=== PATIENT | male | born 1960 | race Caucasian/White ===

== ENCOUNTER 2019-07-12 10:57 | Emergency (ER) | payer OTHER ==
[~2019-07-12] VITALS: Ht 188 cm; Wt 93.0 kg
--- NOTE | 2019-07-12 10:58 | NUR ---
PT BIBA BLS TO ER BED 02
[2019-07-12 11:04] VITALS: BP 170/109
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
--- NOTE | 2019-07-12 11:15 | NUR ---
[place] [facility] AT BEDSIDE TALKING TO PATIENT
--- NOTE | 2019-07-12 11:25 | NUR ---
Patient being evaluated by DR. GREEN at bedside.
--- NOTE | 2019-07-12 12:15 | NUR ---
IV removed, catheter intact and site benign. Applied folded 4x4 gauze and tape to stop bleeding.
--- NOTE | 2019-07-12 12:17 | NUR ---
Patient discharged with v/s stable. Written and verbal after care instructions given and explained by Dr. Velásquez. Patient verbalized understanding. Ambulatory with steady gait. All questions addressed prior to discharge. Advised to follow up with PMD.
[2019-07-12 12:43] VITALS: BP 168/94
== END 2019-07-12 12:17 | disposition home or self-care (01) ==
LOC: MED 10:57
DX: Z02.89 Encounter for other administrative examinations (principal); V89.2XXA Person injured in unspecified motor-vehicle accident, traffic, initial encounter; Y93.89 Activity, other specified; Y92.89 Other specified places as the place of occurrence of the external cause; Y99.8 Other external cause status
CPT/HCPCS: 99283

== ENCOUNTER 2020-01-01 00:10 | Inpatient (IN) | payer MEDICAID ==
[2020-01-01] VITALS (8 sets, daily range): BP systolic 113–182; BP diastolic 68–110
[~2020-01-01] VITALS: Ht 182.9 cm; Wt 93.9 kg
[2020-01-01] MEDS ORDERED: ENALAPRILAT 2.5 MG/2 ML VIAL IVP ONE (00:25)
[2020-01-01] MEDS ORDERED: FUROSEMIDE 20 MG/2 ML VIAL IVP ONE (00:25)
[2020-01-01 01:00] LABS: BASOPHILS # (AUTO) 0.1 K/uL (0.00-0.22); BASOPHILS % (AUTO) 1.5 % (0.0-2.0); EOSINOPHILS % (AUTO) 0.3 % (0.0-4.0); HEMATOCRIT 43.5 % (36-52); HEMOGLOBIN 13.8 g/dL (12.0-18.0); LYMPHOCYTES # (AUTO) 0.3 K/uL (2.0-11.5); MEAN CORPUSCULAR HEMOGLOBIN 25 pg (27-31); MEAN CORPUSCULAR HGB CONC 32 g/dL (33-37); MEAN CORPUSCULAR VOLUME 78.5 fL (80-94); MONOCYTES # (AUTO) 0.5 K/uL (0.8-1.0); MONOCYTES % (AUTO) 6.9 % (1.7-9.3); NEUTROPHILS # (AUTO) 6.4 K/uL (1.8-7.7); NEUTROPHILS % (AUTO) 87.4 % (42.2-75.2); PLATELET COUNT (AUTO) 179 K/uL (140-450); RED BLOOD CELL COUNT(AUTO) 5.55 MIL/uL (4.20-6.10); WHITE BLOOD COUNT (AUTO) 7.4 K/uL (4.8-10.8)
[2020-01-01 01:17] LABS: ALBUMIN 2.4 g/dL (3.4-5.0); ANION GAP 17.8 (8-16); CARBON DIOXIDE 21.6 mmol/L (21-32); CREATININE 1.1 mg/dL (0.6-1.3); POTASSIUM 3.4 mmol/L (3.5-5.1); TOTAL BILIRUBIN 1.5 mg/dL (0.0-1.0)
[2020-01-01 01:20] LABS: LYMPHOCYTES % (AUTO) 3.9 % (20.5-51.1)
[2020-01-01] MEDS ORDERED: FUROSEMIDE 20 MG/2 ML VIAL IVP SCH (02:05)
[2020-01-01] MEDS ORDERED: HYDROcodone/APAP 7.5/325 MG 1 TAB PO PRN (02:05)
[2020-01-01] MEDS ORDERED: ONDANSETRON 4 MG/2 ML VIAL IVP PRN (02:05)
[2020-01-01 02:34] LABS: APPEARANCE,URINE CLEAR (CLEAR); BILIRUBIN,URINE NEGATIVE (NEGATIVE); BLOOD, URINE NEGATIVE (NEGATIVE); COLOR,URINE YELLOW (YELLOW); LEUKOCYTE ESTERASE ,URINE NEGATIVE (NEGATIVE); NITRITE, URINE NEGATIVE (NEGATIVE); UGLUCOSE NEGATIVE (NEGATIVE)
[2020-01-01] MEDS ORDERED: POTASSIUM CHLORIDE 10 MEQ TABER PO SCH (02:35)
[2020-01-01 02:50] LABS: PROTHROMBIN TIME 13.9 secs (10.8-13.4)
[2020-01-01] MEDS: NACL 0.9% 1,000 ML IV SCH ×2 (03:20→22:01)
[2020-01-01 03:28] LABS: BARBITURATE, URINE NEGATIVE ng/ml (NEG <=200); BENZODIAZEPINE, URINE NEGATIVE ng/mL (NEG <=200); CANNABINOID, URINE NEGATIVE ng/mL (NEG <=50); COCAINE, URINE NEGATIVE ng/mL (NEG <=300); OPIATE, URINE NEGATIVE ng/mL (NEG <=2000); PHENCYCLIDINE SCREEN,URINE NEGATIVE ng/mL (NEG <=25)
[2020-01-01 03:39] LABS: MAGNESIUM 1.4 mg/dL (1.8-2.4); PHOSPHORUS 3.1 mg/dL (2.5-4.9); THYROID STIMULATING HORMONE 7.9 uIU/mL (0.34-3.74)
[2020-01-01] MEDS: AMPICILLIN/SULBACTAM 3 GM in NACL 0.9% 100 ML IV SCH ×3 (05:23→22:06)
[2020-01-01] MEDS ORDERED: AMPICILLIN/SULBACTAM 3 GM VIAL ONE (05:24)
[2020-01-01 06:44] LABS: BASOPHILS # (AUTO) 0.1 K/uL (0.00-0.22); EOSINOPHILS % (AUTO) 0.3 % (0.0-4.0); HEMATOCRIT 43.8 % (36-52); HEMOGLOBIN 13.9 g/dL (12.0-18.0); LYMPHOCYTES # (AUTO) 0.4 K/uL (2.0-11.5); MEAN CORPUSCULAR HEMOGLOBIN 25 pg (27-31); MEAN CORPUSCULAR HGB CONC 32 g/dL (33-37); MONOCYTES # (AUTO) 0.7 K/uL (0.8-1.0); MONOCYTES % (AUTO) 7.8 % (1.7-9.3); NEUTROPHILS # (AUTO) 7.7 K/uL (1.8-7.7); NEUTROPHILS % (AUTO) 85.9 % (42.2-75.2); PLATELET COUNT (AUTO) 179 K/uL (140-450); RED BLOOD CELL COUNT(AUTO) 5.61 MIL/uL (4.20-6.10); RED CELL DISTRIBUTION WIDTH 21.9 % (11.6-13.7)
[2020-01-01 07:12] LABS: ANION GAP 18.4 (8-16); CARBON DIOXIDE 22.9 mmol/L (21-32); CREATININE 1.1 mg/dL (0.6-1.3); POTASSIUM 3.3 mmol/L (3.5-5.1)
[2020-01-01 07:32] LABS: MAGNESIUM 1.5 mg/dL (1.8-2.4); PHOSPHORUS 3.5 mg/dL (2.5-4.9)
[2020-01-01] MEDS ORDERED: LISINOPRIL 20 MG TAB PO SCH (09:00)
[2020-01-01 09:24] LABS: CHOL/HDL RATIO 6.2 (1-4.5)
[2020-01-01] MEDS: FUROSEMIDE 40 MG/4 ML VIAL IVP SCH ×2 (09:29→22:06)
[2020-01-01] MEDS: MAGNESIUM OXIDE 400 MG TAB PO PRN (09:30)
[2020-01-01] MEDS: FAMOTIDINE 20 MG TAB PO SCH (09:30)
[2020-01-01] MEDS: POTASSIUM CHLORIDE 10 MEQ TABER PO PRN (09:30)
[2020-01-01] MEDS: DOCUSATE SODIUM 100 MG GELCAP PO SCH ×2 (09:31→21:21)
[2020-01-01] MEDS ORDERED: ASPIRIN 325 MG TAB PO PRN (14:10)
[2020-01-01] MEDS: ACETAMINOPHEN 325 MG TAB PO PRN (14:33)
[2020-01-01] MEDS ORDERED: POTASSIUM CHLORIDE 40 MEQ, LIDOCAINE 1% 25 MG in NACL 0.9% 250 ML IV SCH (17:00)
[2020-01-01] MEDS ORDERED: HYDRAGUARD CREAM TP PRN (17:30)
[2020-01-01] MEDS: HYDRAGUARD CREAM TP SCH (17:51)
[2020-01-02] VITALS: BP 134/86
[2020-01-02 04:00] VITALS: BP_SYST 134; BP_SYST 137; BP_DIAS 76
[2020-01-02] MEDS: AMPICILLIN/SULBACTAM 3 GM in NACL 0.9% 100 ML IV SCH ×3 (05:42→22:06)
[2020-01-02 06:29] LABS: BASOPHILS # (AUTO) 0.1 K/uL (0.00-0.22); BASOPHILS % (AUTO) 0.6 % (0.0-2.0); EOSINOPHILS % (AUTO) 0.3 % (0.0-4.0); HEMATOCRIT 41.1 % (36-52); HEMOGLOBIN 13.1 g/dL (12.0-18.0); LYMPHOCYTES # (AUTO) 0.5 K/uL (2.0-11.5); LYMPHOCYTES % (AUTO) 4.4 % (20.5-51.1); MEAN CORPUSCULAR HEMOGLOBIN 25 pg (27-31); MEAN CORPUSCULAR HGB CONC 32 g/dL (33-37); MEAN CORPUSCULAR VOLUME 78.6 fL (80-94); MONOCYTES # (AUTO) 0.7 K/uL (0.8-1.0); MONOCYTES % (AUTO) 6.2 % (1.7-9.3); NEUTROPHILS # (AUTO) 9.4 K/uL (1.8-7.7); NEUTROPHILS % (AUTO) 88.5 % (42.2-75.2); PLATELET COUNT (AUTO) 169 K/uL (140-450); RED BLOOD CELL COUNT(AUTO) 5.23 MIL/uL (4.20-6.10); RED CELL DISTRIBUTION WIDTH 20.9 % (11.6-13.7); WHITE BLOOD COUNT (AUTO) 10.7 K/uL (4.8-10.8)
[2020-01-02 07:14] LABS: MAGNESIUM 1.3 mg/dL (1.8-2.4); PHOSPHORUS 3.1 mg/dL (2.5-4.9)
[2020-01-02 07:30] LABS: ANION GAP 13.7 (8-16); CARBON DIOXIDE 26.5 mmol/L (21-32); POTASSIUM 3.2 mmol/L (3.5-5.1)
[2020-01-02 08:00] VITALS: BP 139/83
[2020-01-02] MEDS: POTASSIUM CHLORIDE 10 MEQ TABER PO PRN (08:14)
[2020-01-02] MEDS: FUROSEMIDE 40 MG/4 ML VIAL IVP SCH ×2 (09:22→20:36)
[2020-01-02] MEDS: ZINC SULF 220 MG CAP PO SCH (09:24)
[2020-01-02] MEDS: LISINOPRIL 20 MG TAB PO SCH (09:25)
[2020-01-02] MEDS: DOCUSATE SODIUM 100 MG GELCAP PO SCH ×2 (09:26→20:36)
[2020-01-02] MEDS: FAMOTIDINE 20 MG TAB PO SCH (09:26)
[2020-01-02] MEDS: ASCORBIC ACID 500 MG TAB PO SCH (09:37)
[2020-01-02] MEDS ORDERED: MAG SULF 2000 MG/WATER PREMIX 100 ML IV SCH (10:00)
[2020-01-02] MEDS ORDERED: MAGNESIUM OXIDE 400 MG TAB PO SCH (10:00)
[2020-01-02 12:00] VITALS: BP 110/71
[2020-01-02] MEDS ORDERED: POTASSIUM CHLORIDE 40 MEQ, LIDOCAINE MPF 1% 25 MG in NACL 0.9% 250 ML IV SCH (14:00)
[2020-01-02 16:00] VITALS: BP 119/75
[2020-01-02] MEDS: HYDRAGUARD CREAM TP SCH (18:20)
[2020-01-02 20:00] VITALS: BP 112/74
[2020-01-02 20:35] LABS: RBC, BODY FLUID 2720 /cu. mm.; WBC, BODY FLUID 6 /cu. mm.
[2020-01-02 21:35] LABS: APPEARANCE,SPUN,BODY FLUID CLEAR (CLEAR); APPEARANCE,UNSPUN,BODY FLUID CLEAR (CLEAR); COLOR,BODY FLUID LT YELLOW (LT YELLOW); SPECIMENTYPE,BODY FLUID THORACENTESIS; TOTAL VOLUME,BODY FLUID 1500 mL
[2020-01-03] VITALS (7 sets, daily range): BP systolic 109–130; BP diastolic 57–82
[2020-01-03] MEDS: NACL 0.9% 1,000 ML IV SCH (02:04)
[2020-01-03] MEDS: AMPICILLIN/SULBACTAM 3 GM in NACL 0.9% 100 ML IV SCH ×2 (05:20→13:54)
[2020-01-03 07:14] LABS: HEMOGLOBIN 13.4 g/dL (12.0-18.0)
[2020-01-03 07:18] LABS: MEAN CORPUSCULAR HEMOGLOBIN 25 pg (27-31); MEAN CORPUSCULAR HGB CONC 31 g/dL (33-37); MEAN CORPUSCULAR VOLUME 79.7 fL (80-94); PLATELET COUNT (AUTO) 143 K/uL (140-450); RED BLOOD CELL COUNT(AUTO) 5.39 MIL/uL (4.20-6.10); RED CELL DISTRIBUTION WIDTH 21.8 % (11.6-13.7); WHITE BLOOD COUNT (AUTO) 9.9 K/uL (4.8-10.8)
[2020-01-03 07:31] LABS: ANION GAP 11.6 (8-16); POTASSIUM 3.6 mmol/L (3.5-5.1)
[2020-01-03 07:36] LABS: MAGNESIUM 1.6 mg/dL (1.8-2.4); PHOSPHORUS 3.1 mg/dL (2.5-4.9)
[2020-01-03 08:35] LABS: LYMPHOCYTES % (MANUAL) 5 % (20-46)
[2020-01-03 08:36] LABS: EOSINOPHILS % (MANUAL) 1 % (0-4); MONOCYTES % (MANUAL) 7 % (5-12)
[2020-01-03] MEDS: DOCUSATE SODIUM 100 MG GELCAP PO SCH ×2 (09:05→20:55)
[2020-01-03] MEDS: ZINC SULF 220 MG CAP PO SCH (09:06)
[2020-01-03] MEDS: FAMOTIDINE 20 MG TAB PO SCH (09:06)
[2020-01-03] MEDS: LISINOPRIL 20 MG TAB PO SCH (09:06)
[2020-01-03] MEDS: ASCORBIC ACID 500 MG TAB PO SCH (09:06)
[2020-01-03] MEDS: FUROSEMIDE 40 MG/4 ML VIAL IVP SCH ×2 (09:15→20:55)
[2020-01-03] MEDS: MAGNESIUM OXIDE 400 MG TAB PO PRN (12:00)
[2020-01-03] MEDS ORDERED: LIDOCAINE MPF 1% 5 ML ONE (13:15)
[2020-01-03] MEDS: HYDRAGUARD CREAM TP SCH (13:52)
[2020-01-03] MEDS ORDERED: VANCOMYCIN PER PHARMACY MC PRN (17:25)
[2020-01-03] MEDS ORDERED: VANCOMYCIN 2,000 MG in DEXTROSE 5% 500 ML IV ONE (18:05)
[2020-01-03] MEDS ORDERED: VANCOMYCIN 1,000 MG VIAL ONE (18:13)
[2020-01-03 21:35] LABS: GLUCOSE,BODY FLUID 107 mg/dL
[2020-01-03 21:37] LABS: SPECIMENTYPE,BODY FLUID THORACENTESIS; TOTAL VOLUME,BODY FLUID 1450 mL
[2020-01-03 22:26] LABS: APPEARANCE,SPUN,BODY FLUID CLEAR (CLEAR); APPEARANCE,UNSPUN,BODY FLUID CLEAR (CLEAR); COLOR,BODY FLUID LT YELLOW (LT YELLOW); RBC, BODY FLUID 8360 /cu. mm.; WBC, BODY FLUID 682 /cu. mm.
[2020-01-03 22:27] LABS: POLYNUCLEAR, BODY FLUID 28 %
[2020-01-03] MEDS: CARVEDILOL 6.25 MG TAB PO SCH (23:50)
[2020-01-04] MEDS: NACL 0.9% 1,000 ML IV SCH ×2 (02:04→05:18)
[2020-01-04] MEDS ORDERED: HYDRAGUARD CREAM TP ONE (02:30)
[2020-01-04 04:00] VITALS: BP 104/64
[2020-01-04 07:00] LABS: BASOPHILS # (AUTO) 0.1 K/uL (0.00-0.22); BASOPHILS % (AUTO) 0.8 % (0.0-2.0); EOSINOPHILS # (AUTO) 0.1 K/uL (0-0.4); EOSINOPHILS % (AUTO) 0.9 % (0.0-4.0); HEMATOCRIT 40.3 % (36-52); HEMOGLOBIN 12.3 g/dL (12.0-18.0); LYMPHOCYTES # (AUTO) 0.5 K/uL (2.0-11.5); MEAN CORPUSCULAR HEMOGLOBIN 25 pg (27-31); MEAN CORPUSCULAR HGB CONC 31 g/dL (33-37); MEAN CORPUSCULAR VOLUME 82.6 fL (80-94); MONOCYTES # (AUTO) 0.7 K/uL (0.8-1.0); MONOCYTES % (AUTO) 8.7 % (1.7-9.3); NEUTROPHILS # (AUTO) 6.8 K/uL (1.8-7.7); PLATELET COUNT (AUTO) 112 K/uL (140-450); RED BLOOD CELL COUNT(AUTO) 4.88 MIL/uL (4.20-6.10)
[2020-01-04 07:47] LABS: ANION GAP 9.3 (8-16); CARBON DIOXIDE 31.5 mmol/L (21-32); CREATININE 0.8 mg/dL (0.6-1.3)
[2020-01-04 07:55] LABS: LYMPHOCYTES % (AUTO) 5.7 % (20.5-51.1); NEUTROPHILS % (AUTO) 83.9 % (42.2-75.2)
[2020-01-04 07:59] LABS: POTASSIUM 2.8 mmol/L (3.5-5.1)
[2020-01-04 08:00] VITALS: BP 117/64
[2020-01-04] MEDS: LISINOPRIL 20 MG TAB PO SCH (09:00)
[2020-01-04] MEDS: POTASSIUM CHLORIDE 10 MEQ TABER PO PRN (09:39)
[2020-01-04] MEDS: FAMOTIDINE 20 MG TAB PO SCH (09:39)
[2020-01-04] MEDS: MAGNESIUM OXIDE 400 MG TAB PO PRN (09:40)
[2020-01-04] MEDS: DOCUSATE SODIUM 100 MG GELCAP PO SCH ×2 (09:40→20:36)
[2020-01-04] MEDS: LACTOBACILLUS RHAMNOSUS GG 1 EACH CAP PO SCH (09:40)
[2020-01-04] MEDS: ASCORBIC ACID 500 MG TAB PO SCH (09:40)
[2020-01-04] MEDS: ZINC SULF 220 MG CAP PO SCH (09:40)
[2020-01-04] MEDS: CARVEDILOL 6.25 MG TAB PO SCH ×2 (09:40→20:41)
[2020-01-04] MEDS: FUROSEMIDE 40 MG/4 ML VIAL IVP SCH ×2 (09:41→20:41)
[2020-01-04] MEDS: MAG SULF 2000 MG/WATER PREMIX 100 ML IV SCH ×4 (09:55→18:24)
[2020-01-04] MEDS ORDERED: POTASSIUM CHLORIDE 40 MEQ, LIDOCAINE MPF 1% 25 MG in NACL 0.9% 250 ML IV SCH ×2 (10:00→15:00)
[2020-01-04] MEDS: VANCOMYCIN 1,500 MG in DEXTROSE 5% 500 ML IV SCH ×2 (10:21→21:43)
[2020-01-04 12:00] VITALS: BP 109/56
[2020-01-04] MEDS: HYDRAGUARD CREAM TP SCH (13:28)
[2020-01-04] MEDS ORDERED: MAGNESIUM OXIDE 400 MG TAB PO SCH (14:13)
[2020-01-04] MEDS ORDERED: POTASSIUM CHLORIDE 10 MEQ TABER PO SCH (14:14)
[2020-01-04 16:00] VITALS: BP 92/51
[2020-01-04 20:00] VITALS: BP 94/51
[2020-01-05] VITALS: BP 115/67
[2020-01-05 03:30] VITALS: BP 108/71
[2020-01-05 06:22] LABS: ANION GAP 9.5 (8-16); CARBON DIOXIDE 32.9 mmol/L (21-32); POTASSIUM 4.4 mmol/L (3.5-5.1)
[2020-01-05 06:38] LABS: BASOPHILS # (AUTO) 0.1 K/uL (0.00-0.22); BASOPHILS % (AUTO) 1.3 % (0.0-2.0); EOSINOPHILS # (AUTO) 0.1 K/uL (0-0.4); EOSINOPHILS % (AUTO) 1.4 % (0.0-4.0); HEMATOCRIT 41.4 % (36-52); HEMOGLOBIN 13.2 g/dL (12.0-18.0); LYMPHOCYTES # (AUTO) 0.6 K/uL (2.0-11.5); LYMPHOCYTES % (AUTO) 7.4 % (20.5-51.1); MEAN CORPUSCULAR HEMOGLOBIN 25 pg (27-31); MEAN CORPUSCULAR HGB CONC 32 g/dL (33-37); MEAN CORPUSCULAR VOLUME 79.6 fL (80-94); MONOCYTES # (AUTO) 0.7 K/uL (0.8-1.0); MONOCYTES % (AUTO) 9.5 % (1.7-9.3); NEUTROPHILS % (AUTO) 80.4 % (42.2-75.2); PLATELET COUNT (AUTO) 179 K/uL (140-450); RED CELL DISTRIBUTION WIDTH 21.6 % (11.6-13.7); WHITE BLOOD COUNT (AUTO) 7.5 K/uL (4.8-10.8)
[2020-01-05 08:00] VITALS: BP 115/67
[2020-01-05] MEDS: DOCUSATE SODIUM 100 MG GELCAP PO SCH ×2 (09:56→20:25)
[2020-01-05] MEDS: FUROSEMIDE 40 MG/4 ML VIAL IVP SCH ×3 (09:56→17:56)
[2020-01-05] MEDS: ASCORBIC ACID 500 MG TAB PO SCH (09:57)
[2020-01-05] MEDS: FAMOTIDINE 20 MG TAB PO SCH (09:57)
[2020-01-05] MEDS: ZINC SULF 220 MG CAP PO SCH (09:57)
[2020-01-05] MEDS: CARVEDILOL 6.25 MG TAB PO SCH ×2 (09:58→20:19)
[2020-01-05] MEDS: LISINOPRIL 20 MG TAB PO SCH (09:58)
[2020-01-05] MEDS: LACTOBACILLUS RHAMNOSUS GG 1 EACH CAP PO SCH (09:59)
[2020-01-05 12:00] VITALS: BP 107/64
[2020-01-05] MEDS: SPIRONOLACTONE 25 MG TAB PO SCH (14:05)
[2020-01-05] MEDS: HYDRAGUARD CREAM TP SCH (15:33)
[2020-01-05 16:00] VITALS: BP 90/53
[2020-01-05] MEDS: VANCOMYCIN HCL 1.25 GM in DEXTROSE 5% 250 ML IV SCH (18:01)
[2020-01-05 20:00] VITALS: BP 99/53
[2020-01-06] VITALS: BP 117/74
[2020-01-06] MEDS: NACL 0.9% 1,000 ML IV SCH (02:04)
[2020-01-06 04:00] VITALS: BP 121/75
[2020-01-06] MEDS: VANCOMYCIN HCL 1.25 GM in DEXTROSE 5% 250 ML IV SCH (05:11)
[2020-01-06 06:00] LABS: BASOPHILS # (AUTO) 0.1 K/uL (0.00-0.22); BASOPHILS % (AUTO) 0.8 % (0.0-2.0); EOSINOPHILS # (AUTO) 0.1 K/uL (0-0.4); EOSINOPHILS % (AUTO) 1.3 % (0.0-4.0); HEMATOCRIT 38.8 % (36-52); HEMOGLOBIN 12.1 g/dL (12.0-18.0); LYMPHOCYTES # (AUTO) 0.5 K/uL (2.0-11.5); LYMPHOCYTES % (AUTO) 7.3 % (20.5-51.1); MEAN CORPUSCULAR HEMOGLOBIN 25 pg (27-31); MEAN CORPUSCULAR HGB CONC 31 g/dL (33-37); MEAN CORPUSCULAR VOLUME 79.4 fL (80-94); MONOCYTES % (AUTO) 14.4 % (1.7-9.3); NEUTROPHILS # (AUTO) 5.1 K/uL (1.8-7.7); NEUTROPHILS % (AUTO) 76.2 % (42.2-75.2); PLATELET COUNT (AUTO) 179 K/uL (140-450); RED BLOOD CELL COUNT(AUTO) 4.89 MIL/uL (4.20-6.10); RED CELL DISTRIBUTION WIDTH 21.2 % (11.6-13.7); WHITE BLOOD COUNT (AUTO) 6.8 K/uL (4.8-10.8)
[2020-01-06 06:15] LABS: ANION GAP 10.2 (8-16); CARBON DIOXIDE 32.6 mmol/L (21-32); CREATININE 0.9 mg/dL (0.6-1.3); POTASSIUM 3.8 mmol/L (3.5-5.1)
[2020-01-06 06:20] LABS: MAGNESIUM 2.1 mg/dL (1.8-2.4); PHOSPHORUS 2.8 mg/dL (2.5-4.9)
[2020-01-06 08:00] VITALS: BP 129/76
[2020-01-06] MEDS: SPIRONOLACTONE 25 MG TAB PO SCH (09:19)
[2020-01-06] MEDS: LACTOBACILLUS RHAMNOSUS GG 1 EACH CAP PO SCH (09:19)
[2020-01-06] MEDS: ASCORBIC ACID 500 MG TAB PO SCH (09:19)
[2020-01-06] MEDS: LISINOPRIL 20 MG TAB PO SCH (09:20)
[2020-01-06] MEDS: ZINC SULF 220 MG CAP PO SCH (09:20)
[2020-01-06] MEDS: CARVEDILOL 6.25 MG TAB PO SCH ×2 (09:20→20:36)
[2020-01-06] MEDS: DOCUSATE SODIUM 100 MG GELCAP PO SCH ×2 (09:20→20:39)
[2020-01-06] MEDS: FAMOTIDINE 20 MG TAB PO SCH (09:20)
[2020-01-06] MEDS: FUROSEMIDE 40 MG/4 ML VIAL IVP SCH ×3 (09:23→16:24)
[2020-01-06] MEDS ORDERED: CRUSHER, PILL MC ONE (09:27)
[2020-01-06 12:00] VITALS: BP 102/53
[2020-01-06] MEDS ORDERED: CARV6.252 PO (12:41)
[2020-01-06] MEDS ORDERED: LACT10CA PO (12:41)
[2020-01-06] MEDS ORDERED: FURO-572 PO (12:41)
[2020-01-06] MEDS ORDERED: ASPI-1379 PO (12:41)
[2020-01-06] MEDS ORDERED: SPIR25TA PO (12:41)
[2020-01-06] MEDS ORDERED: LEVO750T2 PO (12:41)
[2020-01-06] MEDS ORDERED: LISI-420 PO (12:41)
[2020-01-06] MEDS: HYDRAGUARD CREAM TP SCH (13:00)
[2020-01-06 16:00] VITALS: BP 92/56
[2020-01-06 20:00] VITALS: BP 96/55
[2020-01-07] VITALS: BP 116/73
[2020-01-07] MEDS: NACL 0.9% 1,000 ML IV SCH (02:21)
[2020-01-07 04:05] VITALS: BP 137/74
[2020-01-07 07:04] LABS: BASOPHILS # (AUTO) 0.1 K/uL (0.00-0.22); BASOPHILS % (AUTO) 0.8 % (0.0-2.0); EOSINOPHILS # (AUTO) 0.1 K/uL (0-0.4); EOSINOPHILS % (AUTO) 1.9 % (0.0-4.0); HEMATOCRIT 38.5 % (36-52); HEMOGLOBIN 12.1 g/dL (12.0-18.0); LYMPHOCYTES # (AUTO) 0.6 K/uL (2.0-11.5); MEAN CORPUSCULAR HEMOGLOBIN 25 pg (27-31); MEAN CORPUSCULAR HGB CONC 31 g/dL (33-37); MEAN CORPUSCULAR VOLUME 79.1 fL (80-94); MONOCYTES # (AUTO) 0.7 K/uL (0.8-1.0); NEUTROPHILS # (AUTO) 4.7 K/uL (1.8-7.7); NEUTROPHILS % (AUTO) 76.3 % (42.2-75.2); RED BLOOD CELL COUNT(AUTO) 4.88 MIL/uL (4.20-6.10); RED CELL DISTRIBUTION WIDTH 20.8 % (11.6-13.7); WHITE BLOOD COUNT (AUTO) 6.2 K/uL (4.8-10.8)
[2020-01-07 07:19] LABS: ANION GAP 9.2 (8-16); CARBON DIOXIDE 33.1 mmol/L (21-32); CREATININE 0.8 mg/dL (0.6-1.3); PLATELET COUNT (AUTO) 193 K/uL (140-450); POTASSIUM 3.3 mmol/L (3.5-5.1)
[2020-01-07 07:50] LABS: MAGNESIUM 1.9 mg/dL (1.8-2.4); PHOSPHORUS 2.8 mg/dL (2.5-4.9)
[2020-01-07 08:00] VITALS: BP 139/75
[2020-01-07 08:07] LABS: HEPATITIS A ANTIBODY IGM Negative (Negative); HEPATITIS B CORE AB TOTAL Negative (Negative); HEPATITIS B SURFACE ANTIBODY Non Reactive (.); HEPATITIS B SURFACE ANTIGEN Negative (Negative)
[2020-01-07] MEDS: DOCUSATE SODIUM 100 MG GELCAP PO SCH (08:26)
[2020-01-07] MEDS: ASCORBIC ACID 500 MG TAB PO SCH (08:27)
[2020-01-07] MEDS: FAMOTIDINE 20 MG TAB PO SCH (08:27)
[2020-01-07] MEDS: ZINC SULF 220 MG CAP PO SCH (08:27)
[2020-01-07] MEDS: LACTOBACILLUS RHAMNOSUS GG 1 EACH CAP PO SCH (08:27)
[2020-01-07] MEDS: SPIRONOLACTONE 25 MG TAB PO SCH (08:28)
[2020-01-07] MEDS: CARVEDILOL 6.25 MG TAB PO SCH (08:28)
[2020-01-07] MEDS: LISINOPRIL 20 MG TAB PO SCH (08:29)
[2020-01-07] MEDS: FUROSEMIDE 40 MG/4 ML VIAL IVP SCH ×2 (08:32→12:22)
[2020-01-07] MEDS ORDERED: POTASSIUM CHLORIDE 10 MEQ TABER PO PRN (08:50)
[2020-01-07] MEDS ORDERED: MAGNESIUM OXIDE 400 MG TAB PO PRN (08:50)
[2020-01-07] MEDS ORDERED: VANCOMYCIN HCL 1.25 GM in DEXTROSE 5% 250 ML IV SCH (09:00)
[2020-01-07] MEDS: POTASSIUM CHLORIDE 10 MEQ TABER PO PRN (09:43)
[2020-01-07 12:00] VITALS: BP 108/58
[2020-01-07] MEDS: ACETAMINOPHEN 325 MG TAB PO PRN (12:21)
[2020-01-07] MEDS: HYDRAGUARD CREAM TP SCH (12:22)
[2020-01-07 12:49] VITALS: BP 108/58
== END 2020-01-07 13:45 | disposition home or self-care (01) | DRG 194 ==
LOC: MED 00:10 → MTU 02:11
PROVIDERS: ADMIT General Practice; ATTEND General Practice
PROC: 0W993ZZ Drainage of Right Pleural Cavity, Percutaneous Approach (ICD-10-PCS; 2020-01-02)
PROC: 0W9B3ZZ Drainage of Left Pleural Cavity, Percutaneous Approach (ICD-10-PCS; principal; 2020-01-03)
DX: I11.0 Hypertensive heart disease with heart failure (principal); J96.01 Acute respiratory failure with hypoxia; E43 Unspecified severe protein-calorie malnutrition; I50.43 Acute on chronic combined systolic (congestive) and diastolic (congestive) heart failure; Z68.29 Body mass index [BMI] 29.0-29.9, adult; E87.6 Hypokalemia; L97.519 Non-pressure chronic ulcer of other part of right foot with unspecified severity; E83.42 Hypomagnesemia; E78.5 Hyperlipidemia, unspecified; E03.9 Hypothyroidism, unspecified; L97.319 Non-pressure chronic ulcer of right ankle with unspecified severity; J90 Pleural effusion, not elsewhere classified; Z87.81 Personal history of (healed) traumatic fracture
CPT/HCPCS: 36415; 71045; 71250; 73030; 76604; 76705; 76942; 80048; 80053; 80202; 80305; 81003; 82945; 83036; 83615; 83690; 83735; 83880; 84100; 84155; 84157; 84443; 84484; 85025; 85610; 85730; 86704; 86706; 86708; 86709; 86803; 87040; 87070; 87075; 87081; 87177; 87205; 87340; 89051; 89055; 93005; 93925; 93970; 96374; 96375; 97110; 97112; 97116; 97161-GP; 97530; 99285; J0295; J1644; J1940; J2001; J3370; J3475; J3480; J3490; J7030; J7060; Q0092

== ENCOUNTER 2020-01-08 04:40 | Inpatient (IN) | payer MEDICAID ==
[~2020-01-08] VITALS: Ht 182.9 cm; Wt 93.0 kg
[~2020-01-08 04:40] MED LIST: ASPI-1379 PO; CARV6.252 PO; FURO-572 PO; LACT10CA PO; LEVO750T2 PO; LISI-420 PO; SPIR25TA PO
[2020-01-08 04:47] VITALS: BP 132/109
--- NOTE | 2020-01-08 04:47 | NUR ---
PT TRANSFERRED FROM EMS [facility] TO BED 2
--- NOTE | 2020-01-08 04:50 | NUR ---
59 YO M BIBA FOR C/C OF FALL ONTO BOTH KNEES X45 MIN AGO. PT STATES HIS BILATERAL KNEE PAIN IS 3/10. PT WAS DISCHARGED FROM [facility] TODAY AFTER BEING ADMITTED ON 12/31 FOR CHF EXACERBATION. PT STATES THAT HE DIDNT FEEL READY TO GO HOME HE WAS STILL FEELING GENERALIZED WEAKNESS AND FATIGUE. LOCx4. PT STATES HE HAS HAD A COUGH AND SOB DUE TO THE CHF EXACERBATION. S1S2 HEARD. CRACKLES AUSCULTATED IN BILATERAL LUNG BASES. PT COUGHS ON DEEP INHALATION DURING AUSCULATION. PERIPHERAL PULSES ARE EQUAL AND REGULAR. CAP REFILL <3. PT HAS 3+ PITTING EDEMA ON LEFT UPPER EXTREMETIES AND HANDS, 3+ PITTING EDEMA ON BILATERAL LOWER LIMBS. TRACE EDEMA ON RIGHT UPPER EXTREMETIES. PT DENIES N/V/D. BOWEL SOUNDS ACTIVE THROUGHOUT. PT HAS BLISTERS THAT POPPED A WEEK AGO ON TOP OF RIGHT FOOT AND LOWER CALF. PT PLACED ON PHLEBOTOMIST SUPERVISOR/INSTRUCTOR. BED LOCKED AND IN LOWEST POSITION. NKA RX: SEE MED REC MED HX: CHF, HTN
--- NOTE | 2020-01-08 05:17 | NUR ---
LABS AND URINE COLLECTED AND SENT TO LAB
[2020-01-08 05:27] LABS: BASOPHILS # (AUTO) 0.1 K/uL (0.00-0.22); EOSINOPHILS # (AUTO) 0.1 K/uL (0-0.4); HEMOGLOBIN 11.7 g/dL (12.0-18.0); LYMPHOCYTES # (AUTO) 0.4 K/uL (2.0-11.5); MEAN CORPUSCULAR VOLUME 78.2 fL (80-94); NEUTROPHILS # (AUTO) 5.7 K/uL (1.8-7.7)
[2020-01-08 05:31] LABS: APPEARANCE,URINE CLEAR (CLEAR); BILIRUBIN,URINE NEGATIVE (NEGATIVE); BLOOD, URINE NEGATIVE (NEGATIVE); COLOR,URINE YELLOW (YELLOW); LEUKOCYTE ESTERASE ,URINE TRACE (NEGATIVE); NITRITE, URINE NEGATIVE (NEGATIVE); PH,URINE 7.5 (5.0-9.0); UGLUCOSE NEGATIVE (NEGATIVE)
[2020-01-08 05:40] LABS: BASOPHILS % (AUTO) 1.2 % (0.0-2.0); EOSINOPHILS % (AUTO) 1.4 % (0.0-4.0); HEMATOCRIT 36.7 % (36-52); MEAN CORPUSCULAR HEMOGLOBIN 25 pg (27-31); MEAN CORPUSCULAR HGB CONC 32 g/dL (33-37); MONOCYTES # (AUTO) 0.6 K/uL (0.8-1.0); MONOCYTES % (AUTO) 9.2 % (1.7-9.3); NEUTROPHILS % (AUTO) 81.7 % (42.2-75.2); PLATELET COUNT (AUTO) 229 K/uL (140-450); RED BLOOD CELL COUNT(AUTO) 4.69 MIL/uL (4.20-6.10); WHITE BLOOD COUNT (AUTO) 6.9 K/uL (4.8-10.8)
[2020-01-08 05:43] LABS: LYMPHOCYTES % (AUTO) 6.5 % (20.5-51.1); RED CELL DISTRIBUTION WIDTH 20.6 % (11.6-13.7)
[2020-01-08 05:44] LABS: MAGNESIUM 1.6 mg/dL (1.8-2.4); PHOSPHORUS 2.2 mg/dL (2.5-4.9)
[2020-01-08 05:45] LABS: ALBUMIN 2.1 g/dL (3.4-5.0); ANION GAP 7.2 (8-16); CARBON DIOXIDE 32.1 mmol/L (21-32); CREATININE 1.1 mg/dL (0.6-1.3); POTASSIUM 3.3 mmol/L (3.5-5.1); TOTAL BILIRUBIN 0.7 mg/dL (0.0-1.0)
--- NOTE | 2020-01-08 05:50 | NUR ---
PT RETSING COMFORTABLY IN BED. EQUAL CHEST RISE AND FALL. SAFETY MEASURES IN PLACE.
[2020-01-08 05:53] LABS: RBC,URINE 0-5 /HPF (0-5); WBC,URINE 0-5 /HPF (0-5)
[2020-01-08] MEDS ORDERED: POTASSIUM CHLORIDE 10 MEQ TABER PO ONE (06:30)
[2020-01-08] MEDS ORDERED: FUROSEMIDE 40 MG/4 ML VIAL IVP ONE (06:30)
--- NOTE | 2020-01-08 07:09 | NUR ---
REPORT GIVEN TO LIEN JAIN. TRANSFER OF CARE AT THIS TIME.
--- NOTE | 2020-01-08 07:10 | NUR ---
REPORT RECEIVED FROM LIEN MISTRY FOR CONTINUATION OF CARE.
--- NOTE | 2020-01-08 07:19 | NUR ---
PT RESTING IN BED AT LOWEST POSITION, HOB ELEVATED, BREATHING EVEN AND UNLABORED, SIDE RAILS X1.
[2020-01-08] MEDS ORDERED: ZOLPIDEM 5 MG TAB PO PRN (07:20)
[2020-01-08] MEDS ORDERED: MORPHINE SULFATE 2 MG/ML SYR IVP PRN (07:20)
[2020-01-08] MEDS ORDERED: LORazepam 2 MG/ML VIAL IM/IVP PRN (07:20)
[2020-01-08] MEDS ORDERED: ONDANSETRON 4 MG/2 ML VIAL IM/IVP PRN (07:20)
[2020-01-08] MEDS ORDERED: ACETAMINOPHEN 325 MG TAB PO PRN (07:20)
[2020-01-08] MEDS ORDERED: HYDROcodone/APAP 5/325 MG 1 TAB TAB PO PRN (07:20)
[2020-01-08] MEDS ORDERED: DOCUSATE SODIUM 100 MG GELCAP PO PRN (07:20)
--- NOTE | 2020-01-08 07:36 | NUR ---
LATE ENTRY- ROCEPHIN IVPB DISCONTINUED TIME 6805
[2020-01-08 08:00] VITALS: BP 119/45
[2020-01-08] MEDS: NACL 0.9% 1,000 ML IV SCH (08:00)
--- NOTE | 2020-01-08 08:00 | NUR ---
RECEIVED PT FROM ED NURSE VIA WHEELCHAIR. PT IS AWAKE, ALERT, AND DOES NOT COMPLAIN OF PAIN, AMBULATED TO BED VIA 2 PERSON ASSIST. RESPIRATIONS ARE EVEN AND UNLABORED ON ROOM AIR WITH NO SIGNS OF DISTRESS. PT IS ON WOUND BED WITH SACRAL AND HEEL WOUND, PICTURES OF WOUNDS ARE IN CHART. IV IS PATENT, ASYMPTOMATIC AND INFUSING PER ORDER. SAFETY MEASURES IN PLACE AND WILL CONTINUE TO MONITOR.
--- NOTE | 2020-01-08 08:16 | NUR ---
Patient will be admitted to care of DR. CALVILLO. Admited to [facility]. Will go to [id number]. Belongings list completed. Report to LIEN BLUE.
[2020-01-08 08:30] LABS: THYROID STIMULATING HORMONE 8.47 uIU/mL (0.34-3.74)
[2020-01-08 08:33] LABS: PROTHROMBIN TIME 10.9 secs (10.8-13.4)
--- NOTE | 2020-01-08 08:46 | NUR ---
PATIENT HAS BEEN SCREENED AND CATEGORIZED MODERATE NUTRITION RISK. PATIENT WILL BE SEEN WITHIN 3-5 DAYS OF ADMISSION. 01/10/20 01/12/[address]
--- NOTE | 2020-01-08 09:03 | NUR ---
DISCHARGE PLANNING: THIS IS A 59 Y/O MALE PATIENT FROM HOME, WHO WAS BIBA DUE TO GENERALIZED WEAKNESS AND S/P FALL. PAST MEDICAL HISTORY INCLUDE CHF. INITIAL DIAGNOSIS OF MILD HYPOKALEMIA AND CHF EXACERBATION. CURRENT LABS INCLUDE WBC 6.9, H/H 11.7/36.7, NA/K 137/3.3, BUN/CREA 16/1.1 AND MAG 1.6. ALB 2.1. BLOOD AND URINE CS PENDING. CXR ON ADMISSION SHOWED INTERVAL IMPROVEMENT WITH SMALLER PLEURAL EFFUSIONS AND LESS VASCULAR CONGESTION. NO CONSULTS IN PLACE AT THIS TIME. DC PLAN BACK TO HOME ONCE STABLE.
[2020-01-08 09:38] LABS: BARBITURATE, URINE NEGATIVE ng/ml (NEG <=200); BENZODIAZEPINE, URINE NEGATIVE ng/mL (NEG <=200); CANNABINOID, URINE NEGATIVE ng/mL (NEG <=50); COCAINE, URINE NEGATIVE ng/mL (NEG <=300); OPIATE, URINE NEGATIVE ng/mL (NEG <=2000); PHENCYCLIDINE SCREEN,URINE NEGATIVE ng/mL (NEG <=25)
--- NOTE | 2020-01-08 10:08 | NUR ---
PATIENT IS CURRENTLY AWAKE, ALERT AND SITTING UP IN BED WITH NO COMPLAINTS AT THIS TIME. PT WOULD LIKE TO KNOW WHEN HE WILL BE ABLE TO EAT. SAFETY MEASURES IN PLACE AND WILL CONTINUE TO MONITOR.
--- NOTE | 2020-01-08 10:43 | NUR ---
MOTO MIX OPERATOR NOTE: Basic Screen: Yes High Risk DC Screen No Re-Admission: Increased Symptoms Name: SAMUEL ARIAS Home Relationship: FATHER Pre-Admission Living Arrangements: Lives with Other Other: ROOMRUI[facility] KEYES - [phone] Prior ADL Independent Current Home Health Name/Tel: N/A Current DME/02 Name/Tel: N/A Current Hospice Name/Tel: N/A Current Dialysis Name/Tel: N/A Healthcare Decision Maker: Patient Advance Directive No Physician Orders for Life Sustaining Treatment Form No Patient/Family Have Educational Needs No Discipline: Case Mgt/Social Svcs Tentative Discharge Plan/Destination: No Needs Identified Will require assistance post discharge: No Referred to Test Clerk: No Tentative Discharge Plan Summary: PATIENT IS A 59-YEAR-OLD MALE ADMITTED FOR MILD HYPOKALEMIA/CHF EXACERBATION. PATIENT HAS PMHX OF CHF AND HYPERTENSION. PATIENT WAS LAST DISCHARGED 01/07/2020. PATIENT WAS ADMITTED FROM HOME. SW MET WITH PATIENT AT BEDSIDE TO VERIFY DEMOGRAPHICS. PER PATIENT, HE LIVES WITH ROOMRUIZ KEYES AT [address] [place] [address]. PATIENT PROVIDED ROOMMATE STEPHY'S CONTACT INFORMATION: [phone]. PATIENT ALSO PROVIDED EMERGENCY CONTACT INFORMATION FOR FATHER SAMUEL ARIAS [phone]. PATIENT REPORTS NO HISTORY OF MENTAL HEALTH OR SUBSTANCE ABUSE. TENTATIVE DISCHARGE PLAN IS FOR PATIENT TO RETURN HOME. NO FURTHER NEEDS IDENTIFIED. Signature: PATRICIA BANDA Date: January 08, 2020 Time: 10:42 Addendum: 01/09/20 at 0915 by Bienvenido Irizarry JARVIS CONTACTED PATIENT'S PHARMACY AND SPOKE TO ERON AT PATIENT'S PREFERRED PHARMACY: [facility] [phone]. PER ERON ALL MEDICATION IS COVERED BY INSURANCE. JARVIS INFORMED NURSE WHO TOLD PATIENT.
--- NOTE | 2020-01-08 11:57 | NUR ---
DR. KERNS IS CURRENTLY WITH PT AND IS DISCUSSING PLAN OF CARE. PT STATES THAT HE JUST FEELS WEAK. PT DOES NOT COMPLAIN OF ANY PAIN AT THIS TIME. SAFETY MEASURES IN PLACE AND WILL CONTINUE OT MONITOR.
--- NOTE | 2020-01-08 13:43 | NUR ---
PT CURRENTLY FINISHED EATING LUNCH AND IS SITTING IN CHAIR AT BEDSIDE. LEGS HAVE NOW BEEN ELEVATED ONTO THE BED. SAFETY MEASURES IN PLACE AND WILL CONTINUE OT MONITOR.
[2020-01-08] MEDS: FUROSEMIDE 40 MG/4 ML VIAL IVP SCH ×2 (13:56→17:50)
--- NOTE | 2020-01-08 14:00 | NUR ---
ADMINISTERED MEDICATIONS PER ORDER AND TOLERATED WELL. SAFETY MEASURES IN PLACE AND WILL CONTINUE TO MONITOR.
[2020-01-08] MEDS ORDERED: MAGNESIUM OXIDE 400 MG TAB PO PRN (14:20)
[2020-01-08] MEDS ORDERED: POTASSIUM CHLORIDE 10 MEQ TABER PO PRN (14:20)
[2020-01-08 16:00] VITALS: BP 116/67
[2020-01-08] MEDS ORDERED: VANCOMYCIN PER PHARMACY MC PRN (16:30)
--- NOTE | 2020-01-08 16:50 | NUR ---
ADMINISTERED MEDICATIONS PER ORDER AND TOLERATED WELL. ULTRASOUND JUST FINISHED AT BEDSIDE. PT DOES NOT COMPLAIN OF PAIN AT THIS TIME. SAFETY MEASURES IN PLACE AND WILL CONTINUE TO MONITOR.
[2020-01-08] MEDS: MAG SULF 2000 MG/WATER PREMIX 100 ML IV SCH ×3 (17:00→19:15)
[2020-01-08] MEDS ORDERED: POTASSIUM CHLORIDE 40 MEQ, LIDOCAINE MPF 1% 25 MG in NACL 0.9% 250 ML IV SCH ×2 (17:00→21:00)
--- NOTE | 2020-01-08 17:53 | NUR ---
ADMINISTERED MEDICATIONS PER ORDER AND TOLERATED WELL. SAFETY MEASURES IN PLACE AND WILL CONTINUE TO MONITOR.
--- NOTE | 2020-01-08 18:42 | NUR ---
PT IS CURRENTLY WIDE AWAKE AND ALERT WATCHING TV IN BED. PT HAS NO COMPLAINTS AT THIS TIME OR SHOWS ANY SIGNS OF DISTRESS. SAFETY MEASURES IN PLACE AND WILL CONTINUE TO MONITOR. WILL ENDORSE TO DIRECTOR DIGITAL ADVERTISING NURSE FOR CONTINUITY OF CARE.
[2020-01-08] MEDS ORDERED: VANCOMYCIN 1,000 MG in DEXTROSE 5% 250 ML IV SCH (19:00)
--- NOTE | 2020-01-08 19:30 | NUR ---
RECEIVED REPORT FROM DAY RN. RECEIVED PATIENT A/A/AOX4, SITTING UP IN BED WATCHING TV. DENIES ANY SOB,CHEST PAIN AND DIZZINESS. SR WITH INVERTED T WAVE ON SLUMBER ROOM ATTENDANT, HR-66. NO SIGN AND SYMPTOMS OF DISTRESS NOTED AT THIS TIME. FALL PRECAUTION IMPLEMENTED. INSTRUCTED THE PATIENT TO CALL FOR ASSISTANCE AT ALL TIMES. PATIENT VERBALIZED UNDERSTANDING WITH THE POC.CALL LIGHT WITHIN REACH. WILL CONTINUE MONITORING AND POC.
[2020-01-08 20:00] VITALS: BP 117/73
[2020-01-08] MEDS: CARVEDILOL 6.25 MG TAB PO SCH (21:11)
--- NOTE | 2020-01-08 21:30 | NUR ---
PATIENT HAS MULTIPLE IVPB ORDERED.STARTED A SECOND IV ON THE RIGHT HAND GAUGE 22. SCHEDULED MEDICATIONS ALSO GIVEN TO THE PATIENT AND TOLERATED IT WELL. CALL LIGHT WITHIN REACH. WILL CONTINUE POC AND MONITORING.
--- NOTE | 2020-01-08 23:30 | NUR ---
PT SLEEPING AT THIS TIME. NO SIGN AND SYMPTOMS OF DISTRESS NOTED. CALL LIGHT WITHIN REACH.
[2020-01-09 00:10] VITALS: BP 107/67
--- NOTE | 2020-01-09 01:30 | NUR ---
MADE ROUNDS. PATIENT CONTINUOUSLY SLEEPING . NO SIGN AND SYMPTOMS OF DISTRESS NOTED. CALL LIGHT WITHIN REACH. WILL CONTINUE POC AND MONITORING.
[2020-01-09 04:00] VITALS: BP 114/71
--- NOTE | 2020-01-09 04:00 | NUR ---
WITH REDNESS/PURPLISH COLOR SKIN ON THE RIGHT BUTTOCKS. ON WOUND BED. DRESSING CHANGED. RT LOWER ANTERIOR LEG WITH OPEN WOUND,RT ANTERIOR FOOT PINKISH ALMOST HEALED CLOSED WOUND. ASSISTED PT ALSO TO TURN TO SIDES. WILL HAVE MD MADE AWARE FOR TREATMENTS.
--- NOTE | 2020-01-09 06:15 | NUR ---
PATIENT AWAKE NOW AND SITTING UP IN BED WATCHING TV. NO COMPLAIN AT THIS TIME. CALL LIGHT WITHIN REACH. WILL ENDORSE THE PATIENT TO THE ONCOMING RN FOR CONTINUITY OF CARE. CALL LIGHT WITHIN REACH.
[2020-01-09 06:17] LABS: BASOPHILS # (AUTO) 0.1 K/uL (0.00-0.22); BASOPHILS % (AUTO) 1.2 % (0.0-2.0); EOSINOPHILS # (AUTO) 0.2 K/uL (0-0.4); EOSINOPHILS % (AUTO) 2.9 % (0.0-4.0); HEMOGLOBIN 11.4 g/dL (12.0-18.0); LYMPHOCYTES # (AUTO) 0.7 K/uL (2.0-11.5); LYMPHOCYTES % (AUTO) 9.4 % (20.5-51.1); MEAN CORPUSCULAR HEMOGLOBIN 25 pg (27-31); MEAN CORPUSCULAR HGB CONC 32 g/dL (33-37); MEAN CORPUSCULAR VOLUME 78.9 fL (80-94); MONOCYTES # (AUTO) 0.9 K/uL (0.8-1.0); MONOCYTES % (AUTO) 13.1 % (1.7-9.3); NEUTROPHILS # (AUTO) 5.3 K/uL (1.8-7.7); NEUTROPHILS % (AUTO) 73.4 % (42.2-75.2); PLATELET COUNT (AUTO) 237 K/uL (140-450); RED BLOOD CELL COUNT(AUTO) 4.56 MIL/uL (4.20-6.10); RED CELL DISTRIBUTION WIDTH 20.5 % (11.6-13.7); WHITE BLOOD COUNT (AUTO) 7.3 K/uL (4.8-10.8)
[2020-01-09] MEDS: SODIUM PHOS / POTASSIUM PHOS 1 PKT PDR PO SCH ×3 (06:35→17:15)
[2020-01-09 06:51] LABS: ANION GAP 8.5 (8-16); CARBON DIOXIDE 34.3 mmol/L (21-32); POTASSIUM 3.8 mmol/L (3.5-5.1)
[2020-01-09 06:56] LABS: MAGNESIUM 2.2 mg/dL (1.8-2.4)
[2020-01-09] MEDS: NACL 0.9% 1,000 ML IV SCH (07:18)
--- NOTE | 2020-01-09 07:30 | NUR ---
ENDORSED PATIENT TO THE ONCOMING RN BLOSSOM FOR CONTINUITY OF CARE. PATIENT STABLE, NOT IN ANY DISTRESS. NO COMPLAIN AT THIS TIME. CALL LIGHT WITHIN REACH. SIGNING OFF.
--- NOTE | 2020-01-09 07:37 | NUR ---
RECEIVED REPORT FROM SUPERVISOR COOPERAGE SHOP RN . RECEIVED PATIENT A/A/AOX4, SITTING UP IN BED WATCHING TV. DENIES ANY SOB,CHEST PAIN AND DIZZINESS. NO SIGN AND SYMPTOMS OF DISTRESS NOTED AT THIS TIME. FALL PRECAUTION IMPLEMENTED. INSTRUCTED THE PATIENT TO CALL FOR ASSISTANCE AT ALL TIMES. DISCUSSED POC WITH PT AND PT VERBALIZED UNDERSTANDING.CALL LIGHT WITHIN REACH. WILL MONITOR PT CLOSELY THROUGHOUT THE SHIFT.
[2020-01-09 08:00] VITALS: BP 125/75
[2020-01-09] MEDS: CARVEDILOL 6.25 MG TAB PO SCH (09:00)
[2020-01-09] MEDS: FUROSEMIDE 40 MG/4 ML VIAL IVP SCH ×3 (09:00→17:00)
[2020-01-09] MEDS ORDERED: LACTOBACILLUS RHAMNOSUS GG 1 EACH CAP PO SCH (09:00)
[2020-01-09] MEDS ORDERED: ECOTRIN 81 MG TABEC PO SCH (09:00)
[2020-01-09] MEDS ORDERED: LISINOPRIL 20 MG TAB PO SCH (09:00)
[2020-01-09] MEDS ORDERED: SPIRONOLACTONE 25 MG TAB PO SCH (09:00)
--- NOTE | 2020-01-09 09:20 | NUR ---
ADMIN MORNING MEDS TO PT. PT TOLERATED WELL. ALL NEEDS MET.
--- NOTE | 2020-01-09 11:32 | NUR ---
PT RESTING IN BED. ALL NEEDS MET.
[2020-01-09 12:00] VITALS: BP 121/58
--- NOTE | 2020-01-09 13:22 | NUR ---
PT RESTING IN BED. ALL NEEDS MET. WILL CONTINUE TO ROUND ON PT.
--- NOTE | 2020-01-09 15:40 | NUR ---
PT TOOK OUT IV TUBING FROM IV BAG INFUSING MAG BECAUSE HE SAID IT WAS BURNING HIM. NOTIFIED RESIDENT QUINTON. PER PT AGREED TO PICC LINE. CONSENT SIGNED, CALLED PICC LINE NURSE, AWAITING PICC LINE PLACEMENT. PT REFUSING FOR IV TO BE USED. Addendum: 01/09/20 at 1843 by Ariadne Balderas RN WRONG PT
[2020-01-09] MEDS ORDERED: RIVA20TA PO (15:50)
[2020-01-09] MEDS ORDERED: DILT-135 (15:54)
[2020-01-09 16:00] VITALS: BP 128/75
--- NOTE | 2020-01-09 17:48 | NUR ---
PT DC HOME FOR SELF CARE. PT VERBALIZED UNDERSTANDING TO D/C TEACHING. PT GIVEN PRESCRIPTION TO HAVE FILLED AT LOCAL PHARMACY. PT VERBALIZED UNDERSTANDING. PT IV REMOVED WITH TIP INTACT. ALL PERSONAL BELONGINGS TAKEN HOME WITH PT. PT SIGNED ALL DC PAPERWORK. PT LEFT IN STABLE CONDITION ACCOMPANIED BY BROTHER. Addendum: 01/09/20 at 1854 by Ariadne Balderas RN WRONG PT
--- NOTE | 2020-01-09 19:26 | NUR ---
PT DC HOME FOR SELF CARE. PT VERBALIZED UNDERSTANDING TO D/C TEACHING. PT GIVEN PRESCRIPTION TO HAVE FILLED AT LOCAL PHARMACY. PT VERBALIZED UNDERSTANDING. PT IV REMOVED WITH TIP INTACT. ALL PERSONAL BELONGINGS TAKEN HOME WITH PT. PT SIGNED ALL DC PAPERWORK. PT LEFT IN STABLE CONDITION ACCOMPANIED BY STRUCTURAL ENGINEERING DRAFTING OFFICER. .
== END 2020-01-09 19:30 | disposition home or self-care (01) | DRG 194 ==
LOC: MED 04:40 → MMU 07:38 → OBSVTOIN 13:24 → MMU 19:00
PROVIDERS: ADMIT General Practice; ATTEND General Practice
DX: I11.0 Hypertensive heart disease with heart failure (principal); E43 Unspecified severe protein-calorie malnutrition; I50.43 Acute on chronic combined systolic (congestive) and diastolic (congestive) heart failure; E83.42 Hypomagnesemia; Z68.27 Body mass index [BMI] 27.0-27.9, adult; N39.0 Urinary tract infection, site not specified; E87.6 Hypokalemia; Z60.2 Problems related to living alone; E83.39 Other disorders of phosphorus metabolism; E02 Subclinical iodine-deficiency hypothyroidism; Z91.19 Patient's noncompliance with other medical treatment and regimen; J98.11 Atelectasis
CPT/HCPCS: 96374; 99285; G0378; 36415; 71045; 80048; 80053; 80202; 80305; 81001; 83036; 83605; 83690; 83735; 83880; 84100; 84134; 84443; 84484; 85025; 85610; 85730; 87040; 87081; 87086; 93005; 93970; 97112; 97116; 97161-GP; J1644; J1940; J2001; J3370; J3475; J3480; J7030; J7060; Q0092